=== PATIENT | male | born 2000 | race Caucasian/White ===

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

== ENCOUNTER 2021-10-07 06:36 | Emergency (ER) | payer BC, OTHER ==
[~2021-10-07] VITALS: Ht 172.7 cm; Wt 82.0 kg
[~2021-10-07 06:36] MED LIST: MOTRIN800 MG PO; TRAMADOL HYDROC50 MG PO
[2021-10-07 07:30] VITALS: BP 131/67
== END 2021-10-07 07:54 | disposition home or self-care (01) | DRG 605 ==
LOC: ED 06:36
DX: S60.042A Contusion of left ring finger without damage to nail, initial encounter (principal); G40.909 Epilepsy, unspecified, not intractable, without status epilepticus; W18.30XA Fall on same level, unspecified, initial encounter; Y92.002 Bathroom of unspecified non-institutional (private) residence as the place of occurrence of the external cause

== ENCOUNTER 2024-11-16 09:31 | Emergency (ER) | payer BC, OTHER ==
[~2024-11-16] VITALS: Ht 172.7 cm; Wt 97.0 kg
[2024-11-16 09:35] VITALS: BP 115/76
[2024-11-16 09:55] LABS: BASO% 0.6 % (0-3); EOS% 2.6 % (0-8); IMMATURE GRANULOCYTES 2.8 % (0.0-5.0); LYMPH% 23.7 % (15-41); MEAN CELL VOLUME 82.9 fL CALC (80.0-100.0); MEAN CORPUSCULAR HGB 28.3 pG CALC (26.0-32.0); MEAN CORPUSCULAR HGB CONC 34.1 g/dL CAL (32.0-36.0); MONO% 8.3 % (2-13); NEUT# 3.39 thou/uL (1.82-7.42); RED BLOOD COUNT 5.51 mill/uL (4.70-6.10); RED CELL DISTRI WIDTH 12.4 % (11.5-15.5)
[2024-11-16 09:57] LABS: HEMATOCRIT 45.7 % (39.0-50.0); HEMOGLOBIN 15.6 g/dl (14.0-18.0)
[2024-11-16 10:00] VITALS: BP 106/69
[2024-11-16 10:08] LABS: CREATININE 1.1 mg/dL (0.7-1.3); TOTAL PROTEIN 6.4 g/dL (6.3-8.2)
[2024-11-16 10:10] LABS: BILIRUBIN, TOTAL 0.6 mg/dL (0.2-1.3)
[2024-11-16 10:31] VITALS: BP 127/80
[2024-11-16 11:00] VITALS: BP 113/80
[2024-11-16 11:42] VITALS: BP 113/80
== END 2024-11-16 11:47 | disposition home or self-care (01) | DRG 101 ==
LOC: ED 09:31
PROVIDERS: Family Medicine
DX: G40.909 Epilepsy, unspecified, not intractable, without status epilepticus (principal)
CPT/HCPCS: J1953